=== PATIENT | male | born 1960 | race Caucasian/White ===

== ENCOUNTER 2021-11-30 21:59 | Inpatient (IN) | payer MEDICAID ==
[~2021-11-30] VITALS: Ht 162.6 cm; Wt 73.0 kg
[2021-11-30 23:42] LABS: BASOPHILS % 0.9 % (0.0-2.0); EOSINOPHILS % 13.8 % (0.0-5.0); HEMATOCRIT. 42.8 % (42.0-52.0); HEMOGLOBIN. 14.3 g/dL (14.0-18.0); LYMPHOCYTES % 21.5 % (20.0-50.0); MEAN CORPUSCULAR HEMOGLOBIN 27.1 pg (28.0-32.0); MEAN CORPUSCULAR VOLUME 81.2 fL (80.0-94.0); NEUTROPHILS % 53.8 % (40.0-76.0); PLATELET 169 x1000/uL (130-400); RED BLOOD CELL COUNT 5.27 mill/uL (4.7-6.1); RED CELL DISTRIBUTION WIDTH 14.1 % (11.6-14.6)
[2021-11-30] MEDS ORDERED: METHYLPREDNISOLONE SOD SUCC 125 MG/2 ML VIAL IV NR (23:45)
[2021-11-30] MEDS ORDERED: DIPHENHYDRAMINE 50MG/ML VIAL IV NR (23:45)
[2021-11-30 23:49] LABS: CHLORIDE 102 mEq/L (98-107)
[2021-12-01] MEDS ORDERED: SODIUM CHLORIDE 0.9% 1,000 ML IV ONE (00:45)
[2021-12-01] MEDS ORDERED: IOHEXOL-350 100 ML BOTTLE ONE (06:14)
[2021-12-01 08:40] VITALS: BP 160/100
[2021-12-01] MEDS ORDERED: DEXTROSE 50% WATER 50ML SYRINGE IV PRN (10:15)
[2021-12-01] MEDS ORDERED: ASPIRIN 81MG TABLET PO SCH (10:15)
[2021-12-01] MEDS ORDERED: METF-414 PO (10:28)
[2021-12-01] MEDS ORDERED: ATOR80TA PO (10:28)
[2021-12-01] MEDS ORDERED: METO-539 PO (10:28)
[2021-12-01] MEDS ORDERED: *PATIENT'S OWN MEDICATION STORAGE XX SCH (11:00)
[2021-12-01 12:00] VITALS: BP 146/101
[2021-12-01] MEDS: BLOOD SUGAR DIAGNOSTIC STRIP TEST SCH ×3 (12:20→20:50)
[2021-12-01] MEDS: INSULIN LISPRO 100 UNITS/ML SUBCUT SCH ×3 (12:50→21:04)
[2021-12-01] MEDS ORDERED: METOPROLOL TARTRATE 25MG TABLET PO SCH (13:00)
[2021-12-01 16:00] VITALS: BP 136/87
[2021-12-01] MEDS ORDERED: LORAZEPAM 1MG TABLET PO PRN (17:45)
[2021-12-01 18:55] LABS: *AMPHETAMINES SCREEN URINE NEGATIVE (NEGATIVE); *BARBITURATES SCREEN URINE NEGATIVE (NEGATIVE); *BENZODIAZEPINES SCREEN URINE NEGATIVE (NEGATIVE); *COCAINE SCREEN URINE NEGATIVE (NEGATIVE); CANNABINOID URINE SCREEN NEGATIVE (NEGATIVE); METHADONE URINE SCREEN NEGATIVE (NEGATIVE); OPIATES URINE SCREEN NEGATIVE (NEGATIVE); PHENCYCLIDINE URINE SCREEN NEGATIVE (NEGATIVE)
[2021-12-01 20:00] VITALS: BP 162/104
[2021-12-01] MEDS ORDERED: METOPROLOL TARTRATE 50MG TABLET PO SCH (21:00)
[2021-12-01] MEDS: HYDRALAZINE 20MG/ML VIAL IV PRN (22:57)
[2021-12-02] VITALS (74 sets, daily range): BP systolic 81–199; BP diastolic 54–144
[2021-12-02] MEDS ORDERED: NALOXONE HCL 0.4MG/ML VIAL IV PRN (00:15)
[2021-12-02] MEDS: MORPHINE SULFATE 2 MG/ML CPJ (NOT FOR IM USE) IV PRN ×6 (00:21→21:57)
[2021-12-02] MEDS: LORAZEPAM 2MG/ML CPJ IV PRN ×3 (00:23→21:55)
[2021-12-02] MEDS: HALOPERIDOL LACTATE 5MG/ML VIAL IM PRN ×3 (01:11→06:08)
[2021-12-02] MEDS ORDERED: LORAZEPAM 2MG/ML CPJ IV NR (01:15)
[2021-12-02] MEDS ORDERED: MORPHINE SULFATE 2 MG/ML CPJ (NOT FOR IM USE) IV NR (03:15)
[2021-12-02] MEDS ORDERED: DEXT 5%/0.9% NACL 1,000 ML IV SCH (03:15)
[2021-12-02] MEDS ORDERED: DILTIAZEM HCL 125 MG in DEXT 5% WATER 100 ML IV STA (05:00)
[2021-12-02] MEDS: SODIUM CHLORIDE 0.9% 1,000 ML IV SCH (05:33)
[2021-12-02] MEDS ORDERED: DILTIAZEM 125MG/125ML PMX 125 ML IV PRN (05:45)
[2021-12-02] MEDS: DILTIAZEM 125MG/125ML PMX 125 ML IV PRN (05:46)
[2021-12-02 05:56] LABS: HEMATOCRIT 40.3 % (42.0-52.0); HEMOGLOBIN 13.4 g/dL (14.0-18.0); MEAN CORPUSCULAR HEMOGLOBIN 27.2 pg (28.0-32.0); MEAN CORPUSCULAR VOLUME 81.7 fL (80.0-94.0); PLATELET 153 x1000/uL (130-400); RED BLOOD CELL COUNT 4.94 mill/uL (4.7-6.1)
[2021-12-02] MEDS: INSULIN LISPRO 100 UNITS/ML SUBCUT SCH ×4 (06:05→21:00)
[2021-12-02] MEDS: BLOOD SUGAR DIAGNOSTIC STRIP TEST SCH ×4 (06:05→19:24)
[2021-12-02 06:12] LABS: CHLORIDE 108 mEq/L (98-107)
[2021-12-02] MEDS ORDERED: DIGOXIN 500MCG/2ML AMP IV SCH (08:00)
[2021-12-02] MEDS: DIGOXIN 500MCG/2ML AMP IV NR ×2 (11:39→11:44)
[2021-12-02] MEDS: ACETAMINOPHEN 325MG SUPP PR PRN (14:34)
[2021-12-02] MEDS: DILTIAZEM HCL 5MG/ML 5ML VIAL IV PRN ×2 (14:34→20:44)
[2021-12-02] MEDS: PIPERACILLIN/TAZOBACTAM 3.375 G in DEXTROSE 5% WATER 50 ML IV SCH (15:38)
[2021-12-02 16:06] LABS: BG BASE EXCESS 0.5 mmol/L (-2.0-2.0); BG CARBOXYHEMOGLOBIN 0.7 % (0.5-1.5); BG DEOXYHEMOGLOBIN 7.9 % (0.0-5.0); BG FRACTION INSPIRED OXYGEN 30; BG HCO3 ACT 24.3 mmol/L (22.0-26.0); BG METHEMOGLOBIN 0.4 % (0.0-1.5); BG PCO2 36.7 mmHg (35.0-45.0); BG PH 7.439 (7.350-7.450); BG PO2 59.5 mmHg (75.0-100.0); BG SAMPLE SITE LEFT BRACHIAL; BG TOTAL HEMOGLOBIN 14.2 g/dL (12.0-18.0); BG VENT MODE NASAL CANNULA
[2021-12-02] MEDS ORDERED: KCL 20MEQ/100ML PREMIX 100 ML IV NR (16:30)
[2021-12-02 17:32] LABS: CLARITY URINE CLEAR (CLEAR); COLOR URINE DARK YELLOW (YELLOW); KETONES URINE 2+ (NEGATIVE); LEUKOCYTE ESTERASE URINE 2+ (NEGATIVE); NITRITE URINE NEGATIVE (NEGATIVE); OCCULT BLOOD URINE 3+ (NEGATIVE); PH URINE 5.5 (4.5-8.0); PROTEIN URINE 2+ (NEGATIVE); SPECIFIC GRAVITY URINE 1.024 (1.005-1.030)
[2021-12-02] MEDS: DIGOXIN 500MCG/2ML AMP IV SCH (17:39)
[2021-12-02] MEDS: OLANZAPINE 10 MG/VIAL IM PRN (20:07)
[2021-12-02] MEDS ORDERED: HALOPERIDOL LACTATE 5MG/ML VIAL IM NR (22:00)
[2021-12-02] MEDS ORDERED: ADENOSINE 3 MG/ML 2ML VIAL IV NR (22:15)
[2021-12-02] MEDS ORDERED: DILTIAZEM HCL 5MG/ML 5ML VIAL IV NR (22:30)
[2021-12-03] VITALS (92 sets, daily range): BP systolic 89–176; BP diastolic 55–112
[2021-12-03] MEDS ORDERED: AMIODARONE HCL 150 MG in DEXT 5% WATER 100 ML IV NR (01:00)
[2021-12-03] MEDS: DILTIAZEM 125MG/125ML PMX 125 ML IV PRN ×2 (01:01→15:20)
[2021-12-03] MEDS: PIPERACILLIN/TAZOBACTAM 3.375 G in DEXTROSE 5% WATER 50 ML IV SCH ×4 (01:01→21:15)
[2021-12-03] MEDS: AMIODARONE HCL 900 MG in DEXT 5% WATER 482 ML IV PRN ×3 (01:03→21:01)
[2021-12-03] MEDS ORDERED: SODIUM CHLORIDE 0.9% 250 ML IV ONE (01:15)
[2021-12-03] MEDS: MORPHINE SULFATE 2 MG/ML CPJ (NOT FOR IM USE) IV PRN ×4 (03:14→21:02)
[2021-12-03] MEDS: SODIUM CHLORIDE 0.9% 1,000 ML IV SCH (04:12)
[2021-12-03 04:38] LABS: BASOPHILS % 0.2 % (0.0-2.0); EOSINOPHILS % 0.1 % (0.0-5.0); HEMATOCRIT. 41.2 % (42.0-52.0); HEMOGLOBIN. 13.6 g/dL (14.0-18.0); LYMPHOCYTES % 15.3 % (20.0-50.0); MEAN CORPUSCULAR HEMOGLOBIN 26.9 pg (28.0-32.0); MEAN CORPUSCULAR VOLUME 81.4 fL (80.0-94.0); MEAN PLATELET VOLUME 10.4 fl (7.4-10.4); MONOCYTES % 9.7 % (2.0-8.0); NEUTROPHILS % 74.7 % (40.0-76.0); PLATELET 149 x1000/uL (130-400); RED BLOOD CELL COUNT 5.06 mill/uL (4.7-6.1); RED CELL DISTRIBUTION WIDTH 14.2 % (11.6-14.6)
[2021-12-03] MEDS: OLANZAPINE 10 MG/VIAL IM PRN ×2 (04:40→21:15)
[2021-12-03 04:44] LABS: CHLORIDE 110 mEq/L (98-107)
[2021-12-03 05:00] LABS: PHOSPHORUS 2.7 mg/dL (2.5-4.9)
[2021-12-03 05:09] LABS: HEPATITIS B SURFACE ANTIGEN NEGATIVE
[2021-12-03 05:19] LABS: FOLIC ACID (FOLATE) SERUM 14.1 ng/mL (>5.38)
[2021-12-03] MEDS: INSULIN LISPRO 100 UNITS/ML SUBCUT SCH ×4 (06:59→21:00)
[2021-12-03] MEDS: BLOOD SUGAR DIAGNOSTIC STRIP TEST SCH ×4 (06:59→20:12)
[2021-12-03] MEDS ORDERED: LIDOCAINE HCL 1% 30ML VIAL (10MG/ML) ONE (08:50)
[2021-12-03] MEDS ORDERED: PANTOPRAZOLE 40MG DR TABLET PO SCH (09:00)
[2021-12-03] MEDS: PANTOPRAZOLE SODIUM 40 MG/VIAL IV SCH (09:57)
[2021-12-03] MEDS ORDERED: MIDAZOLAM HCL 5 MG/5 ML VIAL IV PRN (11:45)
[2021-12-03] MEDS: DILTIAZEM HCL 5MG/ML 5ML VIAL IV PRN ×2 (13:16→21:01)
[2021-12-03] MEDS: ACETAMINOPHEN 325MG SUPP PR PRN (16:06)
[2021-12-03] MEDS: DIGOXIN 500MCG/2ML AMP IV SCH (17:33)
[2021-12-03] MEDS: CLOPIDOGREL 75MG TABLET PO SCH (20:30)
[2021-12-03] MEDS: ASPIRIN 81MG TABLET PO SCH (20:30)
[2021-12-04] VITALS (98 sets, daily range): BP systolic 49–169; BP diastolic 27–116
[2021-12-04] MEDS: LORAZEPAM 2MG/ML CPJ IV PRN ×2 (00:18→12:43)
[2021-12-04] MEDS: MORPHINE SULFATE 2 MG/ML CPJ (NOT FOR IM USE) IV PRN ×3 (02:20→15:09)
[2021-12-04] MEDS: DILTIAZEM 125MG/125ML PMX 125 ML IV PRN ×3 (03:44→17:21)
[2021-12-04 04:00] LABS: CHLORIDE 113 mEq/L (98-107)
[2021-12-04 04:27] LABS: BASOPHILS % 0.6 % (0.0-2.0); EOSINOPHILS % 2.4 % (0.0-5.0); HEMATOCRIT. 43.2 % (42.0-52.0); HEMOGLOBIN. 13.9 g/dL (14.0-18.0); LYMPHOCYTES % 14.4 % (20.0-50.0); MEAN CORPUSCULAR HEMOGLOBIN 26.8 pg (28.0-32.0); MEAN CORPUSCULAR VOLUME 83.4 fL (80.0-94.0); MEAN PLATELET VOLUME 9.8 fl (7.4-10.4); MONOCYTES % 8.8 % (2.0-8.0); NEUTROPHILS % 73.8 % (40.0-76.0); PLATELET 121 x1000/uL (130-400); RED BLOOD CELL COUNT 5.18 mill/uL (4.7-6.1); RED CELL DISTRIBUTION WIDTH 14.4 % (11.6-14.6)
[2021-12-04] MEDS: BLOOD SUGAR DIAGNOSTIC STRIP TEST SCH ×4 (05:45→20:05)
[2021-12-04] MEDS: PIPERACILLIN/TAZOBACTAM 3.375 G in DEXTROSE 5% WATER 50 ML IV SCH ×3 (05:52→23:17)
[2021-12-04] MEDS: INSULIN LISPRO 100 UNITS/ML SUBCUT SCH ×4 (07:00→21:00)
[2021-12-04] MEDS: PANTOPRAZOLE SODIUM 40 MG/VIAL IV SCH (08:47)
[2021-12-04] MEDS: ASPIRIN 81MG TABLET PO SCH (09:00)
[2021-12-04] MEDS: CLOPIDOGREL 75MG TABLET PO SCH (09:00)
[2021-12-04] MEDS ORDERED: KCL 20MEQ/100ML PREMIX 100 ML IV NR (13:30)
[2021-12-04] MEDS: OLANZAPINE 10 MG/VIAL IM PRN (14:36)
[2021-12-04] MEDS: DIGOXIN 500MCG/2ML AMP IV SCH (17:39)
[2021-12-05] VITALS (32 sets, daily range): BP systolic 106–174; BP diastolic 59–116
[2021-12-05] MEDS: AMIODARONE HCL 900 MG in DEXT 5% WATER 482 ML IV PRN ×2 (01:53→07:31)
[2021-12-05] MEDS: DILTIAZEM 125MG/125ML PMX 125 ML IV PRN ×2 (01:53→09:09)
[2021-12-05] MEDS: LORAZEPAM 2MG/ML CPJ IV PRN ×3 (02:20→14:06)
[2021-12-05 04:34] LABS: BASOPHILS % 0.5 % (0.0-2.0); CHLORIDE 112 mEq/L (98-107); EOSINOPHILS % 3.7 % (0.0-5.0); HEMATOCRIT. 42.2 % (42.0-52.0); HEMOGLOBIN. 13.8 g/dL (14.0-18.0); LYMPHOCYTES % 16.3 % (20.0-50.0); MEAN CORPUSCULAR VOLUME 82.4 fL (80.0-94.0); MEAN PLATELET VOLUME 10.6 fl (7.4-10.4); MONOCYTES % 9.5 % (2.0-8.0); PLATELET 153 x1000/uL (130-400); RED BLOOD CELL COUNT 5.12 mill/uL (4.7-6.1)
[2021-12-05] MEDS: PIPERACILLIN/TAZOBACTAM 3.375 G in DEXTROSE 5% WATER 50 ML IV SCH ×3 (06:04→21:19)
[2021-12-05] MEDS: BLOOD SUGAR DIAGNOSTIC STRIP TEST SCH ×5 (06:30→21:07)
[2021-12-05] MEDS: INSULIN LISPRO 100 UNITS/ML SUBCUT SCH ×4 (07:00→21:00)
[2021-12-05] MEDS: CLOPIDOGREL 75MG TABLET PO SCH (08:17)
[2021-12-05] MEDS: ASPIRIN 81MG TABLET PO SCH (08:17)
[2021-12-05] MEDS: PANTOPRAZOLE SODIUM 40 MG/VIAL IV SCH (09:08)
[2021-12-05] MEDS ORDERED: POTASSIUM CHLORIDE INJ 40 MEQ in DEXT 5% WATER 250 ML IV ONE (09:15)
[2021-12-05] MEDS ORDERED: ASPIRIN 300MG SUPP PR NR (12:00)
[2021-12-05] MEDS ORDERED: DILTIAZEM 125MG/125ML PMX 125 ML IV PRN (12:58)
[2021-12-05] MEDS: ONDANSETRON HCL 4MG/2ML INJ IV PRN (14:41)
[2021-12-05] MEDS: KCL 20MEQ/100ML X 2 FOR TOTAL KCL 40MEQ/200ML IV SCH ×2 (15:37→18:04)
[2021-12-05] MEDS: DIGOXIN 500MCG/2ML AMP IV SCH (18:06)
[2021-12-05] MEDS: DILTIAZEM 125MG/125ML PMX 125 ML IV SCH ×2 (18:07→22:20)
[2021-12-05] MEDS: METOPROLOL TARTRATE 50MG TABLET PO SCH (20:31)
[2021-12-05] MEDS: SODIUM CHLORIDE 0.45% 1,000 ML IV SCH (20:32)
[2021-12-05] MEDS: MORPHINE SULFATE 2 MG/ML CPJ (NOT FOR IM USE) IV PRN (23:47)
[2021-12-06] VITALS (12 sets, daily range): BP systolic 117–150; BP diastolic 55–102
[2021-12-06] MEDS: MORPHINE SULFATE 2 MG/ML CPJ (NOT FOR IM USE) IV PRN (04:41)
[2021-12-06] MEDS: DILTIAZEM 125MG/125ML PMX 125 ML IV SCH ×3 (06:26→22:28)
[2021-12-06] MEDS: PIPERACILLIN/TAZOBACTAM 3.375 G in DEXTROSE 5% WATER 50 ML IV SCH ×3 (06:26→21:03)
[2021-12-06 06:31] LABS: BASOPHILS % 0.7 % (0.0-2.0); EOSINOPHILS % 6.8 % (0.0-5.0); HEMATOCRIT. 43.5 % (42.0-52.0); HEMOGLOBIN. 14.2 g/dL (14.0-18.0); MEAN CORPUSCULAR VOLUME 82.9 fL (80.0-94.0); MEAN PLATELET VOLUME 10.2 fl (7.4-10.4); MONOCYTES % 9.5 % (2.0-8.0); PLATELET 176 x1000/uL (130-400); RED BLOOD CELL COUNT 5.24 mill/uL (4.7-6.1); RED CELL DISTRIBUTION WIDTH 14.3 % (11.6-14.6)
[2021-12-06] MEDS: BLOOD SUGAR DIAGNOSTIC STRIP TEST SCH ×4 (06:39→21:03)
[2021-12-06 06:46] LABS: CHLORIDE 110 mEq/L (98-107)
[2021-12-06] MEDS: INSULIN LISPRO 100 UNITS/ML SUBCUT SCH ×4 (07:27→21:00)
[2021-12-06] MEDS: SODIUM CHLORIDE 0.45% 1,000 ML IV SCH ×2 (07:49→21:04)
[2021-12-06] MEDS: DILTIAZEM HCL 5MG/ML 5ML VIAL IV PRN (07:50)
[2021-12-06] MEDS: PANTOPRAZOLE SODIUM 40 MG/VIAL IV SCH (08:02)
[2021-12-06] MEDS: CLOPIDOGREL 75MG TABLET PO SCH (08:03)
[2021-12-06] MEDS: LORAZEPAM 2MG/ML CPJ IV PRN ×3 (08:08→17:46)
[2021-12-06] MEDS: METOPROLOL TARTRATE 50MG TABLET PO SCH (11:46)
[2021-12-06] MEDS: OLANZAPINE 10 MG/VIAL IM PRN (14:37)
[2021-12-06] MEDS: ACETAMINOPHEN 325MG TABLET PO PRN (16:38)
[2021-12-06] MEDS: RISPERIDONE 0.5MG TABLET PO SCH (17:18)
[2021-12-06] MEDS: DIGOXIN 500MCG/2ML AMP IV SCH (17:29)
[2021-12-06] MEDS: METOPROLOL TARTRATE 100MG TABLET PO SCH (21:03)
[2021-12-07] VITALS (15 sets, daily range): BP systolic 116–166; BP diastolic 63–112
[2021-12-07] MEDS: OLANZAPINE 10 MG/VIAL IM PRN ×3 (03:09→22:03)
[2021-12-07] MEDS: PIPERACILLIN/TAZOBACTAM 3.375 G in DEXTROSE 5% WATER 50 ML IV SCH (05:26)
[2021-12-07] MEDS: BLOOD SUGAR DIAGNOSTIC STRIP TEST SCH ×4 (07:44→21:00)
[2021-12-07] MEDS: DILTIAZEM 125MG/125ML PMX 125 ML IV SCH ×3 (07:45→23:40)
[2021-12-07] MEDS: INSULIN LISPRO 100 UNITS/ML SUBCUT SCH ×4 (07:45→21:00)
[2021-12-07] MEDS: RISPERIDONE 0.5MG TABLET PO SCH (08:21)
[2021-12-07] MEDS: PANTOPRAZOLE SODIUM 40 MG/VIAL IV SCH (08:21)
[2021-12-07] MEDS: METOPROLOL TARTRATE 100MG TABLET PO SCH ×2 (08:22→21:00)
[2021-12-07] MEDS: CLOPIDOGREL 75MG TABLET PO SCH (08:22)
[2021-12-07] MEDS: ASPIRIN 81MG TABLET PO SCH (08:22)
[2021-12-07] MEDS: SODIUM CHLORIDE 0.45% 1,000 ML IV SCH ×2 (10:35→23:39)
[2021-12-07] MEDS: LORAZEPAM 2MG/ML CPJ IV PRN (11:41)
[2021-12-07] MEDS: DIGOXIN 500MCG/2ML AMP IV SCH (17:19)
[2021-12-07] MEDS: RISPERIDONE 1MG TABLET PO SCH (17:19)
[2021-12-08] VITALS (12 sets, daily range): BP systolic 112–140; BP diastolic 68–96
[2021-12-08] MEDS: INSULIN LISPRO 100 UNITS/ML SUBCUT SCH ×4 (07:50→21:00)
[2021-12-08] MEDS: BLOOD SUGAR DIAGNOSTIC STRIP TEST SCH ×4 (07:50→21:00)
[2021-12-08] MEDS: DILTIAZEM 125MG/125ML PMX 125 ML IV SCH (08:40)
[2021-12-08] MEDS: ASPIRIN 81MG TABLET PO SCH (09:06)
[2021-12-08] MEDS: PANTOPRAZOLE SODIUM 40 MG/VIAL IV SCH (09:06)
[2021-12-08] MEDS: CLOPIDOGREL 75MG TABLET PO SCH (09:07)
[2021-12-08] MEDS: RISPERIDONE 1MG TABLET PO SCH ×2 (09:07→16:49)
[2021-12-08] MEDS: METOPROLOL TARTRATE 100MG TABLET PO SCH ×2 (09:14→20:49)
[2021-12-08] MEDS ORDERED: METOPROLOL TARTRATE 100MG TABLET PO SCH (09:15)
[2021-12-08] MEDS: SODIUM CHLORIDE 0.45% 1,000 ML IV SCH (12:35)
[2021-12-08] MEDS: OLANZAPINE 10 MG/VIAL IM PRN (16:40)
[2021-12-08 18:33] LABS: BASOPHILS % 0.9 % (0.0-2.0); EOSINOPHILS % 6.3 % (0.0-5.0); HEMATOCRIT. 42.8 % (42.0-52.0); LYMPHOCYTES % 18.8 % (20.0-50.0); MEAN CORPUSCULAR HEMOGLOBIN 26.7 pg (28.0-32.0); MEAN CORPUSCULAR VOLUME 81.5 fL (80.0-94.0); MONOCYTES % 10.5 % (2.0-8.0); NEUTROPHILS % 63.5 % (40.0-76.0); RED BLOOD CELL COUNT 5.25 mill/uL (4.7-6.1)
[2021-12-08 18:57] LABS: CHLORIDE 111 mEq/L (98-107)
[2021-12-08 19:39] LABS: PLATELET 187 x1000/uL (130-400)
[2021-12-08] MEDS: LORAZEPAM 2MG/ML CPJ IV PRN (20:57)
[2021-12-08] MEDS: ONDANSETRON HCL 4MG/2ML INJ IV PRN (21:40)
[2021-12-09] VITALS (12 sets, daily range): BP systolic 48–178; BP diastolic 30–101
[2021-12-09] MEDS: OLANZAPINE 10 MG/VIAL IM PRN ×2 (01:34→13:08)
[2021-12-09] MEDS: SODIUM CHLORIDE 0.45% 1,000 ML IV SCH ×2 (01:57→16:41)
[2021-12-09] MEDS: BLOOD SUGAR DIAGNOSTIC STRIP TEST SCH ×3 (07:43→17:19)
[2021-12-09] MEDS: INSULIN LISPRO 100 UNITS/ML SUBCUT SCH ×3 (08:00→17:19)
[2021-12-09] MEDS: METOPROLOL TARTRATE 100MG TABLET PO SCH ×2 (10:10→20:41)
[2021-12-09] MEDS: RISPERIDONE 1MG TABLET PO SCH ×2 (10:10→16:41)
[2021-12-09] MEDS: ASPIRIN 81MG TABLET PO SCH (10:11)
[2021-12-09] MEDS: CLOPIDOGREL 75MG TABLET PO SCH (10:11)
[2021-12-09] MEDS: FAMOTIDINE 20MG/2ML VIAL IV SCH ×2 (10:14→20:41)
[2021-12-10] VITALS (12 sets, daily range): BP systolic 115–148; BP diastolic 55–98
[2021-12-10] MEDS: SODIUM CHLORIDE 0.45% 1,000 ML IV SCH ×2 (04:42→17:31)
[2021-12-10] MEDS: INSULIN LISPRO 100 UNITS/ML SUBCUT SCH ×5 (06:00→23:11)
[2021-12-10] MEDS: BLOOD SUGAR DIAGNOSTIC STRIP TEST SCH ×5 (06:00→23:11)
[2021-12-10] MEDS: CLOPIDOGREL 75MG TABLET PO SCH (08:05)
[2021-12-10] MEDS: ASPIRIN 81MG TABLET PO SCH (08:05)
[2021-12-10] MEDS: RISPERIDONE 1MG TABLET PO SCH ×2 (08:05→17:31)
[2021-12-10] MEDS: METOPROLOL TARTRATE 100MG TABLET PO SCH ×2 (08:05→21:30)
[2021-12-10] MEDS: FAMOTIDINE 20MG/2ML VIAL IV SCH ×2 (08:06→21:30)
[2021-12-10] MEDS ORDERED: DIPHENHYDRAMINE 50MG/ML VIAL IV PRN (20:44)
[2021-12-10] MEDS: LORAZEPAM 2MG/ML CPJ IV PRN (21:30)
[2021-12-11] VITALS (12 sets, daily range): BP systolic 110–164; BP diastolic 41–98
[2021-12-11] MEDS: DILTIAZEM HCL 5MG/ML 5ML VIAL IV PRN ×4 (01:17→14:21)
[2021-12-11] MEDS: BLOOD SUGAR DIAGNOSTIC STRIP TEST SCH ×4 (05:31→23:37)
[2021-12-11] MEDS: INSULIN LISPRO 100 UNITS/ML SUBCUT SCH ×4 (05:31→23:37)
[2021-12-11] MEDS: SODIUM CHLORIDE 0.45% 1,000 ML IV SCH ×2 (07:30→20:18)
[2021-12-11] MEDS: LORAZEPAM 2MG/ML CPJ IV PRN ×3 (07:38→23:37)
[2021-12-11] MEDS: RISPERIDONE 1MG TABLET PO SCH ×2 (09:00→16:04)
[2021-12-11] MEDS: METOPROLOL TARTRATE 100MG TABLET PO SCH ×2 (09:00→20:33)
[2021-12-11] MEDS: CLOPIDOGREL 75MG TABLET PO SCH (09:00)
[2021-12-11] MEDS: ASPIRIN 81MG TABLET PO SCH (09:00)
[2021-12-11] MEDS ORDERED: AMIODARONE HCL 150 MG in DEXT 5% WATER 100 ML IV NR (09:45)
[2021-12-11] MEDS ORDERED: AMIODARONE HCL 900 MG in DEXT 5% WATER 482 ML IV NR (10:30)
[2021-12-11] MEDS: FAMOTIDINE 20MG/2ML VIAL IV SCH ×2 (10:45→20:33)
[2021-12-11] MEDS: HYDRALAZINE 20MG/ML VIAL IV PRN (14:26)
[2021-12-11 16:57] LABS: BASOPHILS % 0.5 % (0.0-2.0); EOSINOPHILS % 3.7 % (0.0-5.0); HEMATOCRIT. 41.4 % (42.0-52.0); HEMOGLOBIN. 13.7 g/dL (14.0-18.0); LYMPHOCYTES % 12.2 % (20.0-50.0); MEAN CORPUSCULAR HEMOGLOBIN 26.9 pg (28.0-32.0); MEAN CORPUSCULAR VOLUME 81.3 fL (80.0-94.0); MEAN PLATELET VOLUME 10.4 fl (7.4-10.4); MONOCYTES % 7.1 % (2.0-8.0); NEUTROPHILS % 76.5 % (40.0-76.0); PLATELET 242 x1000/uL (130-400); RED BLOOD CELL COUNT 5.09 mill/uL (4.7-6.1); RED CELL DISTRIBUTION WIDTH 13.7 % (11.6-14.6)
[2021-12-11 17:04] LABS: CHLORIDE 108 mEq/L (98-107)
[2021-12-11] MEDS ORDERED: DIGOXIN 500MCG/2ML AMP IV NR (18:15)
[2021-12-12] VITALS (18 sets, daily range): BP systolic 106–144; BP diastolic 67–95
[2021-12-12] MEDS: INSULIN LISPRO 100 UNITS/ML SUBCUT SCH ×4 (06:00→23:09)
[2021-12-12] MEDS: BLOOD SUGAR DIAGNOSTIC STRIP TEST SCH ×4 (06:00→23:08)
[2021-12-12] MEDS: CLOPIDOGREL 75MG TABLET PO SCH (08:39)
[2021-12-12] MEDS: ASPIRIN 81MG TABLET PO SCH (08:40)
[2021-12-12] MEDS: RISPERIDONE 1MG TABLET PO SCH ×2 (08:40→17:56)
[2021-12-12] MEDS: METOPROLOL TARTRATE 100MG TABLET PO SCH ×2 (08:42→20:17)
[2021-12-12] MEDS: FAMOTIDINE 20MG/2ML VIAL IV SCH ×2 (08:42→20:17)
[2021-12-12] MEDS: SODIUM CHLORIDE 0.45% 1,000 ML IV SCH ×2 (14:04→23:20)
[2021-12-12] MEDS: DIGOXIN 500MCG/2ML AMP IV SCH (17:57)
[2021-12-13] VITALS (12 sets, daily range): BP systolic 119–160; BP diastolic 75–117
[2021-12-13 05:31] LABS: BASOPHILS % 0.9 % (0.0-2.0); EOSINOPHILS % 10.1 % (0.0-5.0); HEMATOCRIT. 39.9 % (42.0-52.0); HEMOGLOBIN. 13.3 g/dL (14.0-18.0); LYMPHOCYTES % 13.6 % (20.0-50.0); MEAN CORPUSCULAR HEMOGLOBIN 26.8 pg (28.0-32.0); MEAN CORPUSCULAR VOLUME 80.5 fL (80.0-94.0); MEAN PLATELET VOLUME 10.4 fl (7.4-10.4); MONOCYTES % 8.2 % (2.0-8.0); NEUTROPHILS % 67.2 % (40.0-76.0); PLATELET 273 x1000/uL (130-400); RED BLOOD CELL COUNT 4.95 mill/uL (4.7-6.1)
[2021-12-13] MEDS: INSULIN LISPRO 100 UNITS/ML SUBCUT SCH ×3 (06:00→17:59)
[2021-12-13] MEDS: BLOOD SUGAR DIAGNOSTIC STRIP TEST SCH ×3 (06:00→17:59)
[2021-12-13 06:42] LABS: CHLORIDE 102 mEq/L (98-107)
[2021-12-13 07:00] LABS: DIGOXIN 0.7 ng/mL (0.9-2.0)
[2021-12-13] MEDS: ASPIRIN 81MG TABLET PO SCH (08:30)
[2021-12-13] MEDS: CLOPIDOGREL 75MG TABLET PO SCH (08:30)
[2021-12-13] MEDS: FAMOTIDINE 20MG/2ML VIAL IV SCH (08:30)
[2021-12-13] MEDS: RISPERIDONE 1MG TABLET PO SCH ×2 (08:31→18:04)
[2021-12-13] MEDS: METOPROLOL TARTRATE 100MG TABLET PO SCH (08:31)
[2021-12-13] MEDS: LORAZEPAM 2MG/ML CPJ IV PRN (11:58)
[2021-12-13] MEDS: DILTIAZEM HCL 60MG TABLET PO SCH ×2 (11:58→18:04)
[2021-12-13] MEDS: SODIUM CHLORIDE 0.45% 1,000 ML IV SCH (16:07)
[2021-12-13] MEDS: DIVALPROEX SODIUM 250MG DR TABLET PO SCH ×2 (16:07→21:51)
[2021-12-13] MEDS: DIGOXIN 500MCG/2ML AMP IV SCH (18:04)
[2021-12-13] MEDS: FAMOTIDINE 20MG TABLET PO SCH (21:51)
[2021-12-14] VITALS (30 sets, daily range): BP systolic 90–137; BP diastolic 45–85
[2021-12-14] MEDS: DILTIAZEM HCL 60MG TABLET PO SCH ×5 (00:08→23:25)
[2021-12-14] MEDS: SODIUM CHLORIDE 0.45% 1,000 ML IV SCH ×2 (05:28→16:52)
[2021-12-14] MEDS: LORAZEPAM 2MG/ML CPJ IV PRN (05:59)
[2021-12-14] MEDS: INSULIN LISPRO 100 UNITS/ML SUBCUT SCH ×5 (06:00→23:23)
[2021-12-14] MEDS: BLOOD SUGAR DIAGNOSTIC STRIP TEST SCH ×5 (06:00→23:10)
[2021-12-14] MEDS: DIVALPROEX SODIUM 250MG DR TABLET PO SCH ×2 (08:57→20:20)
[2021-12-14] MEDS: RISPERIDONE 1MG TABLET PO SCH ×2 (08:57→16:52)
[2021-12-14] MEDS: FAMOTIDINE 20MG TABLET PO SCH ×2 (08:57→20:20)
[2021-12-14] MEDS: CLOPIDOGREL 75MG TABLET PO SCH (08:57)
[2021-12-14] MEDS: ASPIRIN 81MG TABLET PO SCH (08:58)
[2021-12-14] MEDS ORDERED: AMIODARONE HCL 900 MG in DEXT 5% WATER 482 ML IV SCH (09:45)
[2021-12-14] MEDS ORDERED: AMIODARONE HCL 150 MG in DEXT 5% WATER 100 ML IV NR (11:00)
[2021-12-14] MEDS: METOCLOPRAMIDE HCL 10MG/2ML VIAL IV SCH ×3 (12:08→22:51)
[2021-12-14 17:58] LABS: TOTAL IRON BINDING CAPACITY 284 ug/dL (250-450)
[2021-12-14] MEDS: DIGOXIN 500MCG/2ML AMP IV SCH (17:59)
[2021-12-14] MEDS: ONDANSETRON HCL 4MG/2ML INJ IV PRN (20:20)
[2021-12-15] VITALS (16 sets, daily range): BP systolic 102–154; BP diastolic 52–93
[2021-12-15] MEDS: DILTIAZEM HCL 60MG TABLET PO SCH ×2 (04:44→12:12)
[2021-12-15] MEDS: METOCLOPRAMIDE HCL 10MG/2ML VIAL IV SCH ×3 (04:44→18:10)
[2021-12-15] MEDS: SODIUM CHLORIDE 0.45% 1,000 ML IV SCH ×2 (04:48→18:11)
[2021-12-15] MEDS: INSULIN LISPRO 100 UNITS/ML SUBCUT SCH ×3 (05:44→18:00)
[2021-12-15] MEDS: BLOOD SUGAR DIAGNOSTIC STRIP TEST SCH ×3 (05:44→18:10)
[2021-12-15] MEDS: LORAZEPAM 2MG/ML CPJ IV PRN ×2 (05:47→16:28)
[2021-12-15 06:48] LABS: BASOPHILS % 0.5 % (0.0-2.0); HEMATOCRIT. 41.6 % (42.0-52.0); HEMOGLOBIN. 13.7 g/dL (14.0-18.0); LYMPHOCYTES % 7.4 % (20.0-50.0); MEAN CORPUSCULAR HEMOGLOBIN 26.8 pg (28.0-32.0); MEAN CORPUSCULAR VOLUME 81.5 fL (80.0-94.0); MEAN PLATELET VOLUME 10.3 fl (7.4-10.4); MONOCYTES % 8.5 % (2.0-8.0); NEUTROPHILS % 79.6 % (40.0-76.0); PLATELET 331 x1000/uL (130-400); RED BLOOD CELL COUNT 5.11 mill/uL (4.7-6.1)
[2021-12-15] MEDS: RISPERIDONE 1MG TABLET PO SCH ×2 (08:31→18:09)
[2021-12-15] MEDS: ASPIRIN 81MG TABLET PO SCH (08:31)
[2021-12-15] MEDS: DIVALPROEX SODIUM 250MG DR TABLET PO SCH ×2 (08:31→20:21)
[2021-12-15] MEDS: CLOPIDOGREL 75MG TABLET PO SCH (08:31)
[2021-12-15] MEDS: FAMOTIDINE 20MG TABLET PO SCH ×2 (09:00→20:21)
[2021-12-15 10:24] LABS: CHLORIDE 102 mEq/L (98-107)
[2021-12-15] MEDS ORDERED: ENOXAPARIN 100MG/ML SYR SUBCUT SCH (12:00)
[2021-12-15] MEDS: AMIODARONE HCL 200 MG TABLET PO SCH ×2 (13:12→20:22)
[2021-12-15] MEDS ORDERED: LORAZEPAM 1MG TABLET NG NR (13:15)
[2021-12-15] MEDS ORDERED: DIPHENHYDRAMINE 50MG/ML VIAL IV ONE (13:15)
[2021-12-15] MEDS ORDERED: IPRATROPIUM BROMIDE (0.02%) 0.5MG/2.5ML NEB HHN SCH (15:45)
[2021-12-15 15:50] LABS: INR 1.1; PROTHROMBIN TIME 12.2 sec (9.6-11.0)
[2021-12-15] MEDS: DIGOXIN 500MCG/2ML AMP IV SCH (18:10)
[2021-12-15] MEDS: DILTIAZEM HCL 90MG TABLET PO SCH (18:10)
[2021-12-15] MEDS ORDERED: GADOTERATE MEGLUMINE 5 MMOL/10 ML VIAL IV ONE (19:32)
[2021-12-15] MEDS: ONDANSETRON HCL 4MG/2ML INJ IV PRN (20:31)
[2021-12-15] MEDS ORDERED: ENOXAPARIN 30MG/0.3ML SYR SUBCUT SCH (21:00)
[2021-12-15 22:14] LABS: BG BASE EXCESS 1.7 mmol/L (-2.0-2.0); BG CARBOXYHEMOGLOBIN 0.6 % (0.5-1.5); BG DEOXYHEMOGLOBIN 8.1 % (0.0-5.0); BG HCO3 ACT 24.7 mmol/L (22.0-26.0); BG OXYGEN SATURATION 91.9 % (92.0-98.5); BG OXYHEMOGLOBIN 91.3 % (94.0-97.0); BG PCO2 33.8 mmHg (35.0-45.0); BG PH 7.481 (7.350-7.450); BG PO2 57.4 mmHg (75.0-100.0); BG SAMPLE SITE RIGHT RADIAL; BG TOTAL HEMOGLOBIN 14.2 g/dL (12.0-18.0); BG VENT MODE ROOM AIR
[2021-12-15] MEDS ORDERED: FLUMAZENIL 0.1 MG/ML 5ML VIAL IV NR (22:45)
[2021-12-15] MEDS ORDERED: METHYLPREDNISOLONE SOD SUCC 125 MG/2 ML VIAL IV NR (23:15)
[2021-12-16] VITALS (56 sets, daily range): BP systolic 99–182; BP diastolic 48–110
[2021-12-16] MEDS: METOCLOPRAMIDE HCL 10MG/2ML VIAL IV SCH ×5 (00:12→23:27)
[2021-12-16] MEDS: BLOOD SUGAR DIAGNOSTIC STRIP TEST SCH ×5 (00:13→23:27)
[2021-12-16] MEDS ORDERED: LEVETIRACETAM 500 MG in SODIUM CHLORIDE 0.9% 100 ML IV SCH (00:15)
[2021-12-16] MEDS ORDERED: NICARDIPINE 100 MG in SODIUM CHLORIDE 0.9% 60 ML IV PRN (00:15)
[2021-12-16] MEDS: ALBUTEROL (0.083%) 2.5MG/3ML NEB HHN SCH ×4 (00:48→20:44)
[2021-12-16] MEDS: LEVETIRACETAM 500MG PREMIX 100 ML IV SCH ×2 (01:08→14:57)
[2021-12-16] MEDS ORDERED: FLUMAZENIL 0.1 MG/ML 5ML VIAL IV NR (02:45)
[2021-12-16] MEDS: METHYLPREDNISOLONE SOD SUCC 125 MG/2 ML VIAL IV SCH ×3 (05:10→21:31)
[2021-12-16] MEDS: DILTIAZEM HCL 90MG TABLET PO SCH ×5 (05:45→23:34)
[2021-12-16] MEDS: INSULIN LISPRO 100 UNITS/ML SUBCUT SCH ×5 (05:46→23:38)
[2021-12-16 06:02] LABS: HEMATOCRIT. 38.8 % (42.0-52.0); HEMOGLOBIN. 12.9 g/dL (14.0-18.0); MEAN CORPUSCULAR HEMOGLOBIN 27.1 pg (28.0-32.0); MEAN CORPUSCULAR VOLUME 81.2 fL (80.0-94.0); MEAN PLATELET VOLUME 10.7 fl (7.4-10.4); PLATELET 304 x1000/uL (130-400); RED BLOOD CELL COUNT 4.78 mill/uL (4.7-6.1); RED CELL DISTRIBUTION WIDTH 13.9 % (11.6-14.6)
[2021-12-16] MEDS ORDERED: FLUMAZENIL 0.1 MG/ML 5ML VIAL IV ONE (07:00)
[2021-12-16 07:10] LABS: CHLORIDE 103 mEq/L (98-107)
[2021-12-16 08:20] LABS: PLATELET ESTIMATE NORMAL
[2021-12-16] MEDS ORDERED: APIXABAN 5 MG TABLET PO SCH (09:00)
[2021-12-16] MEDS: SODIUM CHLORIDE 0.45% 1,000 ML IV SCH ×2 (09:36→23:28)
[2021-12-16] MEDS: FAMOTIDINE 20MG TABLET PO SCH ×2 (10:34→21:31)
[2021-12-16] MEDS: RISPERIDONE 1MG TABLET PO SCH ×2 (10:34→17:46)
[2021-12-16] MEDS: DIVALPROEX SODIUM 250MG DR TABLET PO SCH ×2 (10:35→21:31)
[2021-12-16] MEDS: AMIODARONE HCL 200 MG TABLET PO SCH ×2 (10:35→21:34)
[2021-12-16] MEDS: PIPERACILLIN/TAZOBACTAM 3.375 G in DEXTROSE 5% WATER 50 ML IV SCH ×2 (14:57→21:32)
[2021-12-16] MEDS: DIGOXIN 500MCG/2ML AMP IV SCH (17:46)
[2021-12-16] MEDS ORDERED: ACETAMINOPHEN 500MG TABLET PO PRN (22:00)
[2021-12-16] MEDS ORDERED: ACETAMINOPHEN 500MG TABLET PO NR (22:30)
[2021-12-17] VITALS (46 sets, daily range): BP systolic 95–164; BP diastolic 57–91
[2021-12-17] MEDS: LEVETIRACETAM 500MG PREMIX 100 ML IV SCH ×2 (01:27→14:32)
[2021-12-17] MEDS: ALBUTEROL (0.083%) 2.5MG/3ML NEB HHN SCH ×6 (04:10→23:59)
[2021-12-17 05:07] LABS: HEMATOCRIT. 36.3 % (42.0-52.0); HEMOGLOBIN. 12.1 g/dL (14.0-18.0); MEAN CORPUSCULAR VOLUME 80.7 fL (80.0-94.0); MEAN PLATELET VOLUME 10.3 fl (7.4-10.4); PLATELET 309 x1000/uL (130-400)
[2021-12-17 05:17] LABS: CHLORIDE 103 mEq/L (98-107)
[2021-12-17] MEDS: METOCLOPRAMIDE HCL 10MG/2ML VIAL IV SCH ×3 (05:49→18:00)
[2021-12-17] MEDS: METHYLPREDNISOLONE SOD SUCC 125 MG/2 ML VIAL IV SCH (05:49)
[2021-12-17] MEDS: DILTIAZEM HCL 90MG TABLET PO SCH ×4 (05:51→18:00)
[2021-12-17] MEDS: PIPERACILLIN/TAZOBACTAM 3.375 G in DEXTROSE 5% WATER 50 ML IV SCH ×3 (05:52→21:46)
[2021-12-17] MEDS: BLOOD SUGAR DIAGNOSTIC STRIP TEST SCH ×4 (06:21→23:56)
[2021-12-17] MEDS: INSULIN LISPRO 100 UNITS/ML SUBCUT SCH ×3 (06:26→18:01)
[2021-12-17 07:47] LABS: PLATELET ESTIMATE NORMAL
[2021-12-17] MEDS: AMIODARONE HCL 200 MG TABLET PO SCH ×2 (09:26→20:21)
[2021-12-17] MEDS: FAMOTIDINE 20MG TABLET PO SCH ×2 (09:26→20:21)
[2021-12-17] MEDS: RISPERIDONE 1MG TABLET PO SCH ×2 (09:26→17:59)
[2021-12-17] MEDS: DIVALPROEX SODIUM 250MG DR TABLET PO SCH ×2 (09:26→20:21)
[2021-12-17] MEDS: ACETAMINOPHEN 325MG TABLET PO PRN (16:55)
[2021-12-17] MEDS: DIGOXIN 500MCG/2ML AMP IV SCH (18:00)
[2021-12-17] MEDS: ONDANSETRON HCL 4MG/2ML INJ IV PRN (18:00)
[2021-12-17] MEDS: METHYLPREDNISOLONE SOD SUCC 40 MG/ML VIAL IV SCH (18:00)
[2021-12-18] VITALS (13 sets, daily range): BP systolic 93–142; BP diastolic 54–93
[2021-12-18] MEDS: METOCLOPRAMIDE HCL 10MG/2ML VIAL IV SCH ×4 (00:03→18:14)
[2021-12-18] MEDS: ACETAMINOPHEN 325MG TABLET PO PRN (00:04)
[2021-12-18] MEDS: DILTIAZEM HCL 90MG TABLET PO SCH ×4 (00:04→18:14)
[2021-12-18] MEDS: INSULIN LISPRO 100 UNITS/ML SUBCUT SCH ×4 (00:05→18:15)
[2021-12-18] MEDS: LEVETIRACETAM 500MG PREMIX 100 ML IV SCH ×2 (00:53→13:23)
[2021-12-18] MEDS: ALBUTEROL (0.083%) 2.5MG/3ML NEB HHN SCH ×5 (05:02→19:59)
[2021-12-18] MEDS: PIPERACILLIN/TAZOBACTAM 3.375 G in DEXTROSE 5% WATER 50 ML IV SCH ×3 (05:24→21:55)
[2021-12-18] MEDS: BLOOD SUGAR DIAGNOSTIC STRIP TEST SCH ×3 (05:24→18:16)
[2021-12-18 08:25] LABS: HEMATOCRIT. 36.1 % (42.0-52.0); HEMOGLOBIN. 11.9 g/dL (14.0-18.0); MEAN CORPUSCULAR HEMOGLOBIN 26.8 pg (28.0-32.0); MEAN CORPUSCULAR VOLUME 81.5 fL (80.0-94.0); MEAN PLATELET VOLUME 10.3 fl (7.4-10.4); PLATELET 341 x1000/uL (130-400); RED BLOOD CELL COUNT 4.43 mill/uL (4.7-6.1); RED CELL DISTRIBUTION WIDTH 13.7 % (11.6-14.6)
[2021-12-18 08:42] LABS: CHLORIDE 106 mEq/L (98-107)
[2021-12-18] MEDS: METHYLPREDNISOLONE SOD SUCC 40 MG/ML VIAL IV SCH ×2 (08:54→21:56)
[2021-12-18] MEDS: DIVALPROEX SODIUM 250MG DR TABLET PO SCH ×2 (08:55→21:56)
[2021-12-18] MEDS: AMIODARONE HCL 200 MG TABLET PO SCH ×2 (08:55→21:58)
[2021-12-18] MEDS: RISPERIDONE 1MG TABLET PO SCH ×2 (08:55→18:13)
[2021-12-18] MEDS: FAMOTIDINE 20MG TABLET PO SCH ×2 (08:55→21:58)
[2021-12-18] MEDS ORDERED: LACTULOSE 20G/30ML UDC PO SCH (12:00)
[2021-12-18] MEDS: DOCUSATE SODIUM SUGAR FREE 100MG/10ML UDC NG SCH (12:03)
[2021-12-18 13:31] LABS: PLATELET ESTIMATE NORMAL
[2021-12-18] MEDS: DIGOXIN 500MCG/2ML AMP IV SCH (18:14)
[2021-12-18] MEDS: INSULIN GLARGINE 100 UNITS/ML SUBCUT SCH (21:57)
[2021-12-19] VITALS (12 sets, daily range): BP systolic 124–154; BP diastolic 75–97
[2021-12-19] MEDS: ALBUTEROL (0.083%) 2.5MG/3ML NEB HHN SCH ×6 (00:01→20:40)
[2021-12-19] MEDS: METOCLOPRAMIDE HCL 10MG/2ML VIAL IV SCH ×4 (00:30→18:43)
[2021-12-19] MEDS: INSULIN LISPRO 100 UNITS/ML SUBCUT SCH ×4 (00:30→18:00)
[2021-12-19] MEDS: DILTIAZEM HCL 90MG TABLET PO SCH ×4 (00:31→18:43)
[2021-12-19] MEDS: BLOOD SUGAR DIAGNOSTIC STRIP TEST SCH ×4 (00:31→18:44)
[2021-12-19] MEDS: LEVETIRACETAM 500MG PREMIX 100 ML IV SCH ×2 (02:00→12:48)
[2021-12-19 04:28] LABS: HEMATOCRIT. 37.1 % (42.0-52.0); HEMOGLOBIN. 12.3 g/dL (14.0-18.0); MEAN CORPUSCULAR VOLUME 81.2 fL (80.0-94.0); MEAN PLATELET VOLUME 10.2 fl (7.4-10.4); PLATELET 344 x1000/uL (130-400); RED BLOOD CELL COUNT 4.57 mill/uL (4.7-6.1); RED CELL DISTRIBUTION WIDTH 14.2 % (11.6-14.6)
[2021-12-19 04:38] LABS: INR 1.2; PROTHROMBIN TIME 12.4 sec (9.6-11.0)
[2021-12-19 05:20] LABS: CHLORIDE 107 mEq/L (98-107)
[2021-12-19] MEDS: PIPERACILLIN/TAZOBACTAM 3.375 G in DEXTROSE 5% WATER 50 ML IV SCH ×3 (05:32→21:04)
[2021-12-19 09:32] LABS: PLATELET ESTIMATE NORMAL
[2021-12-19] MEDS: DOCUSATE SODIUM SUGAR FREE 100MG/10ML UDC NG SCH (09:55)
[2021-12-19] MEDS: DIVALPROEX SODIUM 250MG DR TABLET PO SCH ×2 (09:55→21:03)
[2021-12-19] MEDS: METHYLPREDNISOLONE SOD SUCC 40 MG/ML VIAL IV SCH ×2 (09:55→21:03)
[2021-12-19] MEDS: FAMOTIDINE 20MG TABLET PO SCH ×2 (09:55→21:04)
[2021-12-19] MEDS: AMIODARONE HCL 200 MG TABLET PO SCH ×2 (09:56→21:04)
[2021-12-19] MEDS: RISPERIDONE 1MG TABLET PO SCH ×2 (09:56→18:43)
[2021-12-19] MEDS: INSULIN GLARGINE 100 UNITS/ML SUBCUT SCH (12:36)
[2021-12-19] MEDS: IRON SUCROSE COMPLEX 100 MG/5 ML ML IV SCH (12:48)
[2021-12-19] MEDS: CYANOCOBALAMIN 1000MCG/ML VIAL SUBCUT SCH (12:48)
[2021-12-19] MEDS ORDERED: BARIUM SULFATE 176 GM SUSP.RECON ONE (13:05)
[2021-12-19] MEDS: CLONAZEPAM 0.5MG TABLET PO SCH (18:43)
[2021-12-19] MEDS: DIGOXIN 500MCG/2ML AMP IV SCH (18:44)
[2021-12-19] MEDS: ONDANSETRON HCL 4MG/2ML INJ IV PRN (21:08)
[2021-12-20] VITALS (12 sets, daily range): BP systolic 104–154; BP diastolic 50–89
[2021-12-20] MEDS: CLONAZEPAM 0.5MG TABLET PO SCH ×4 (00:05→20:29)
[2021-12-20] MEDS: METOCLOPRAMIDE HCL 10MG/2ML VIAL IV SCH ×5 (00:11→23:57)
[2021-12-20] MEDS: DILTIAZEM HCL 90MG TABLET PO SCH ×5 (00:11→23:53)
[2021-12-20] MEDS: INSULIN GLARGINE 100 UNITS/ML SUBCUT SCH ×3 (00:12→23:59)
[2021-12-20] MEDS: INSULIN LISPRO 100 UNITS/ML SUBCUT SCH ×5 (00:13→23:57)
[2021-12-20] MEDS: LEVETIRACETAM 500MG PREMIX 100 ML IV SCH ×2 (00:32→13:20)
[2021-12-20] MEDS: ALBUTEROL (0.083%) 2.5MG/3ML NEB HHN SCH ×6 (04:00→20:50)
[2021-12-20] MEDS: BLOOD SUGAR DIAGNOSTIC STRIP TEST SCH ×5 (05:28→23:48)
[2021-12-20] MEDS: PIPERACILLIN/TAZOBACTAM 3.375 G in DEXTROSE 5% WATER 50 ML IV SCH ×3 (05:28→20:27)
[2021-12-20 06:09] LABS: HEMATOCRIT. 41.2 % (42.0-52.0); HEMOGLOBIN. 13.6 g/dL (14.0-18.0); LYMPHOCYTES % 8.7 % (20.0-50.0); MEAN CORPUSCULAR HEMOGLOBIN 26.8 pg (28.0-32.0); MEAN CORPUSCULAR VOLUME 81.1 fL (80.0-94.0); MEAN PLATELET VOLUME 10.1 fl (7.4-10.4); MONOCYTES % 4.8 % (2.0-8.0); NEUTROPHILS % 86.5 % (40.0-76.0); PLATELET 360 x1000/uL (130-400); RED BLOOD CELL COUNT 5.08 mill/uL (4.7-6.1); RED CELL DISTRIBUTION WIDTH 13.9 % (11.6-14.6)
[2021-12-20 06:57] LABS: CHLORIDE 104 mEq/L (98-107)
[2021-12-20] MEDS: CYANOCOBALAMIN 1000MCG/ML VIAL SUBCUT SCH (08:50)
[2021-12-20] MEDS: DOCUSATE SODIUM SUGAR FREE 100MG/10ML UDC NG SCH (08:50)
[2021-12-20] MEDS: FAMOTIDINE 20MG TABLET PO SCH ×2 (08:51→20:27)
[2021-12-20] MEDS: RISPERIDONE 1MG TABLET PO SCH ×2 (08:51→17:47)
[2021-12-20] MEDS: AMIODARONE HCL 200 MG TABLET PO SCH ×2 (08:51→20:27)
[2021-12-20] MEDS: METHYLPREDNISOLONE SOD SUCC 40 MG/ML VIAL IV SCH ×2 (08:51→20:27)
[2021-12-20] MEDS: DIVALPROEX SODIUM 250MG DR TABLET PO SCH ×2 (08:51→20:27)
[2021-12-20] MEDS ORDERED: DIGOXIN 500MCG/2ML AMP IV NR ×2 (11:00→17:00)
[2021-12-20] MEDS: IRON SUCROSE COMPLEX 100 MG/5 ML ML IV SCH (13:17)
[2021-12-21] VITALS: BP 97/59
[2021-12-21] MEDS: ALBUTEROL (0.083%) 2.5MG/3ML NEB HHN SCH ×4 (01:01→12:05)
[2021-12-21] MEDS: LEVETIRACETAM 500MG PREMIX 100 ML IV SCH (01:27)
[2021-12-21 02:00] VITALS: BP 94/55
[2021-12-21] MEDS: ONDANSETRON HCL 4MG/2ML INJ IV PRN ×2 (03:15→11:21)
[2021-12-21 04:00] VITALS: BP 100/61
[2021-12-21 06:00] VITALS: BP 105/58
[2021-12-21] MEDS: DILTIAZEM HCL 90MG TABLET PO SCH ×2 (06:00→13:09)
[2021-12-21] MEDS: BLOOD SUGAR DIAGNOSTIC STRIP TEST SCH ×2 (06:00→12:00)
[2021-12-21 06:15] LABS: CHLORIDE 105 mEq/L (98-107)
[2021-12-21] MEDS: PIPERACILLIN/TAZOBACTAM 3.375 G in DEXTROSE 5% WATER 50 ML IV SCH (06:17)
[2021-12-21] MEDS: CLONAZEPAM 0.5MG TABLET PO SCH (06:17)
[2021-12-21] MEDS: METOCLOPRAMIDE HCL 10MG/2ML VIAL IV SCH ×2 (06:21→12:00)
[2021-12-21] MEDS: INSULIN LISPRO 100 UNITS/ML SUBCUT SCH ×2 (06:24→13:11)
[2021-12-21 06:46] LABS: DIGOXIN 1.3 ng/mL (0.9-2.0)
[2021-12-21 06:52] LABS: HEMATOCRIT. 41.1 % (42.0-52.0); HEMOGLOBIN. 13.4 g/dL (14.0-18.0); MEAN CORPUSCULAR HEMOGLOBIN 26.7 pg (28.0-32.0); MEAN CORPUSCULAR VOLUME 81.7 fL (80.0-94.0); MEAN PLATELET VOLUME 10.2 fl (7.4-10.4); PLATELET 332 x1000/uL (130-400); RED BLOOD CELL COUNT 5.03 mill/uL (4.7-6.1); RED CELL DISTRIBUTION WIDTH 13.5 % (11.6-14.6)
[2021-12-21 07:55] VITALS: BP 110/58
[2021-12-21] MEDS: CYANOCOBALAMIN 1000MCG/ML VIAL SUBCUT SCH (08:06)
[2021-12-21] MEDS: METHYLPREDNISOLONE SOD SUCC 40 MG/ML VIAL IV SCH (08:06)
[2021-12-21] MEDS: DOCUSATE SODIUM SUGAR FREE 100MG/10ML UDC NG SCH (08:06)
[2021-12-21] MEDS: DIVALPROEX SODIUM 250MG DR TABLET PO SCH (08:06)
[2021-12-21] MEDS: AMIODARONE HCL 200 MG TABLET PO SCH (08:06)
[2021-12-21] MEDS: RISPERIDONE 1MG TABLET PO SCH (08:07)
[2021-12-21] MEDS: FAMOTIDINE 20MG TABLET PO SCH (08:07)
[2021-12-21] MEDS: INSULIN GLARGINE 100 UNITS/ML SUBCUT SCH (08:13)
[2021-12-21 09:39] VITALS: BP 110/52
[2021-12-21] MEDS ORDERED: DIPHENHYDRAMINE 12.5MG/5ML UDC PO PRN (11:15)
[2021-12-21] MEDS: ACETAMINOPHEN 325MG TABLET PO PRN (11:21)
[2021-12-21 12:49] LABS: PLATELET ESTIMATE NORMAL
[2021-12-21] MEDS: IRON SUCROSE COMPLEX 100 MG/5 ML ML IV SCH (13:01)
== END 2021-12-21 13:15 | DRG 720 ==
LOC: ER 21:59 → 6WST 12-01 01:50 → MICUNO 12-01 23:47 → MICUSO 12-03 18:23 → 5EST 12-05 11:39 → MICUNO 12-15 22:39 → 5EST 12-18 01:42
PROVIDERS: ADMIT Internal Medicine Nephrology; ATTEND Internal Medicine Nephrology
PROC: 05HY33Z Insertion of Infusion Device into Upper Vein, Percutaneous Approach (ICD-10-PCS; principal; 2021-12-03)
PROC: 5A09357 Assistance with Respiratory Ventilation, Less than 24 Consecutive Hours, Continuous Positive Airway Pressure (ICD-10-PCS; 2021-12-16)
DX: A41.9 Sepsis, unspecified organism (principal); I61.1 Nontraumatic intracerebral hemorrhage in hemisphere, cortical; G93.6 Cerebral edema; I63.9 Cerebral infarction, unspecified; J69.0 Pneumonitis due to inhalation of food and vomit; J96.01 Acute respiratory failure with hypoxia; G93.41 Metabolic encephalopathy; D50.9 Iron deficiency anemia, unspecified; E11.9 Type 2 diabetes mellitus without complications; Z20.822 Contact with and (suspected) exposure to COVID-19; I48.92 Unspecified atrial flutter; N39.0 Urinary tract infection, site not specified; I11.9 Hypertensive heart disease without heart failure; I95.9 Hypotension, unspecified; K76.0 Fatty (change of) liver, not elsewhere classified; E87.6 Hypokalemia; R45.1 Restlessness and agitation; R47.1 Dysarthria and anarthria; I48.0 Paroxysmal atrial fibrillation; F29 Unspecified psychosis not due to a substance or known physiological condition; F41.9 Anxiety disorder, unspecified; F32.A Depression, unspecified; Z23 Encounter for immunization; Z78.1 Physical restraint status; Z91.83 Wandering in diseases classified elsewhere
CPT/HCPCS: 36415; 36573; 36600; 70496; 70498; 70551; 70552; 71045; 74230; 76700; 80048; 80053; 80061; 80076; 80162; 80305; 81003; 82375; 82607; 82728; 82746; 82805; 82962; 83036; 83540; 83550; 83605; 83735; 83880; 84100; 84145; 84443; 85025; 85027; 85044; 86705; 86709; 86803; 87340; 87426; 92610; 92611; 93005; 93306; 94640; 94660; 97116; 97162; 97164; 97166; 97168; 97530; 97535; 99285; A6261; A9577; C1725; C1769; C9113; J0282; J0360; J1160; J1200; J1630; J1815; J1953; J2060; J2270; J2405; J2543; J2765; J2920; J2930; J3420; J3480; J3490; J7030; J7060; Q0163; Q9967; A4315; A5200

== ENCOUNTER 2021-12-24 20:33 | Emergency (ER) | payer MEDICAID ==
[~2021-12-24] VITALS: Ht 175.3 cm; Wt 90.0 kg
[~2021-12-24 20:33] MED LIST: ATOR80TA PO; METF-414 PO; METO-539 PO
[2021-12-25] MEDS ORDERED: LORAZEPAM 2MG/ML CPJ IM ONE (01:15)
[2021-12-25 02:23] VITALS: BP 145/83
== END 2021-12-25 03:26 ==
LOC: ER 20:33
DX: S09.8XXA Other specified injuries of head, initial encounter (principal); W18.39XA Other fall on same level, initial encounter; Y93.89 Activity, other specified; Y92.89 Other specified places as the place of occurrence of the external cause; Y99.8 Other external cause status; I63.9 Cerebral infarction, unspecified; E11.9 Type 2 diabetes mellitus without complications; I10 Essential (primary) hypertension
CPT/HCPCS: 70450; 96372; 99284; J2060